=== PATIENT | male | born 1975 | race Caucasian/White ===

== ENCOUNTER 2017-08-06 10:28 | Emergency (ER) | payer OTHER, MEDICAID ==
[2017-08-06 12:03] LABS: URINE BLOOD (Dip) POC Negative (NEGATIVE); URINE GLUCOSE (Dip) POC Negative (NEGATIVE); URINE KETONES (Dip) POC Negative (NEGATIVE); URINE LEUKOCYTE EST (Dip) POC Negative (NEGATIVE); URINE NITRITE (Dip) POC Negative (NEGATIVE); URINE TOTAL PROTEIN POC Negative (NEGATIVE)
[2017-08-06 12:03] LABS: URINE PH (Dip) POC 5.5 (5.0-8.5)
[2017-08-06] MEDS: ONDANSETRON (ODT) 4 MG TAB ODT (12:11)
[2017-08-06] MEDS: HYDROCODONE/APAP (5/325) TAB PO (12:11)
[2017-08-06] MEDS: CEFTRIAXONE 1 GM INJ IM (13:17)
[2017-08-06] MEDS: LIDOCAINE 1% (MDV) 10 ML INJ INFIL (13:17)
[2017-08-06] MEDS: AZITHROMYCIN 250 MG TAB PO (13:26)
== END 2017-08-06 13:40 | disposition home or self-care (01) ==
LOC: FTE 10:28
DX: N45.1 Epididymitis (principal); F17.210 Nicotine dependence, cigarettes, uncomplicated; I10 Essential (primary) hypertension
CPT/HCPCS: 74176; 76870; 81003; 87591; 96372; 99285-25